=== PATIENT | female | born 1970 | race Caucasian/White ===

== ENCOUNTER → 2016-06-18 | Outpatient (CLI) | payer BC ==
[~2016-06-18] MED LIST: ACET-2321 PO; ASPI-917 PO; CALC60CR5 TOP; CLOB15OI3 TOP; DICL75TA5 PO; LISI-621 PO; LISI1TAB11 PO; MAGN250T33 PO; OXYC5TAB84 PO; POLY17PO6 PO
[2016-06-18 09:55] LABS: ANION GAP 10 MEQ/L (5-15); BUN/CREATININE RATIO 23 RATIO (6-26); CALCIUM 9.1 MG/DL (8.4-10.2); CHLORIDE 105 MEQ/L (98-107); CO2 - CARBON DIOXIDE 29 MEQ/L (22-30); CREATININE 0.7 MG/DL (0.7-1.2); GLOMERULAR FILTRATION RATE 91; GLUCOSE 94 MG/DL (65-110); POTASSIUM 4.2 MEQ/L (3.6-5); SODIUM 144 MEQ/L (134-144)
== END ==
LOC: LAB 09:28
PROVIDERS: ATTEND Orthopaedic Surgery
DX: E87.1 Hypo-osmolality and hyponatremia (principal)
CPT/HCPCS: 36415; 80048

== ENCOUNTER 2016-07-16 06:09 | Day surgery (SDC) | payer BC ==
--- NOTE | 2016-07-07 09:49 | NUR ---
PMH, allergies, reviewed and updated. Preop and DOS instructions given including handout of Postop Instructions for CTR and Surgical Services pamphlet. Patient does continue on ASA as a blood thinner from postop knee revision. Message to Dr Cummins's nurse who will check with him and notify patient with regard to the ASA.
[~2016-07-16] VITALS: Ht 157.5 cm; Wt 107.1 kg
[~2016-07-16 06:09] MED LIST changes: -OXYC5TAB84 PO; -POLY17PO6 PO
--- OUTSIDE RECORDS SUMMARY | 2016-07-16 06:14 | XMS REPORT | Continuity of Care Document ---
Author Author [facility] Organization [facility] Address Unknown Phone Unavailable Support Name Relationship Address Phone CHRISTI CUMMINS MD Caregiver [address] [place] [address] Unavailable CHRISTI CUMMINS MD Caregiver [address] [place] [address] Unavailable KI MALONEY MD Caregiver [address] [place] [address] Unavailable THOMPSON MARTINEZ Next Of Kin [address] [place] [address] Insurance Providers Guarantor George Martinez Address [address] [place] [address] Email [email or web address] Policy Number [id number] Subscriber's Name Thompson Martinez Relationship 01 Spouse Group Number [id number] Advance Directives Directive Response Recorded Date/Time Ordered Resuscitation Status Full Code 06/14/16 3:00pm Resuscitation Documents on File No 06/15/16 10:00am DPOA for Healthcare Only No 06/15/16 10:00am Living Will No 06/15/16 10:00am Problems Active Problems Medical Problem Onset Date Status Hyperlipemia Unknown Hypertension Unknown Obesity, morbid, BMI 40.0-49.9 Unknown Surgical Problem Onset Date Status History of total knee arthroplasty Unknown Chronic Past Problems Medical Problem Onset Date Asthma Unknown Degenerative arthritis of left knee Unknown Medications Current Home Medications Medication Dose Units Route Directions Days Qty Instructions Start Date Acetaminophen (Tylenol) 325 Mg Tablet 650 Mg Oral Four Times Daily 60 Tablet 06/16/16 Aspirin (Aspirin Ec) 325 Mg Tablet. 325 Mg Oral Twice A Day 84 Tablet 06/16/16 Calcipotriene 60 Gm Cream..g. 1 Applic Topically Twice A Day as needed for Psoriasis 02/05/16 Clobetasol Propionate 15 Gm Oint...g. 1 Applic Topically Twice A Day as needed for Psoriasis 02/05/16 Diclofenac Sodium 75 Mg Tablet. 1 Tab Oral Twice A Day 04/28/16 Lisinopril 20 Mg Tablet 20 Mg Oral Daily 2 Tablet 06/16/16 Lisinopril/Hydrochlorothiazide (Lisinopril-Hctz 20-12.5 Mg Tab) 1 Each Tablet 1 Tab Oral Daily 08/07/15 Magnesium Oxide (Magnesium) 250 Mg Tablet 250 Mg Oral Daily 04/28 Oxycodone Hcl 5 Mg Tablet 5-15 Mg Oral Every 3 Hours as needed for Breakthrough Pain 60 Tablet 06/16/16 Polyethylene Glycol 3350 (Miralax) 17 Gm Powd.pack 17 G Oral Daily as needed for Constipation 1 Bottle Take 17 Grams (1 capful), by mouth, once a day. 06/16/16 Past Home Medications Medication Directions Ordered Status Hydralazine/Reserpin/Hctz (Hctz/Reserpine/Hydral Tab) 1 Tab Tablet, 1 Tab Oral 07/06/10 Discontinued Social History Social History Problem Response Recorded Date/Time Onset Date Status Reason for Hospitalization RIGHT KNEE REVISION 06/16/2016 12:59pm Not Applicable Not Applicable Chewing Tobacco Status No 06/15/2016 10:00am Not Applicable Not Applicable Hx Substance Use No 06/15/2016 10:00am Not Applicable Not Applicable Hx Alcohol Use Y every other week 06/15/2016 10:00am Not Applicable Not Applicable Has the pt used tobacco in the last 12 months No 06/15/2016 10:00am Not Applicable Not Applicable Query Response Start Date Stop Date Smoking Status Former smoker Hospital Discharge Instructions Instructions: Care Instructions: Reason for Hospitalization: RIGHT KNEE REVISION I was in the hospital because (patient own words): right knee surgery Discharge Diet: Resume normal diet as tolerated Discharge Activity: Continue the exercises you were given in the hospital three times a day. Your therapist will provide you with a home therapy program prior to your hospital discharge. As you feel stronger, increase the number of repetitions you do in each session. Please check with us before you swim, use a whirlpool, drive or ride a bicycle. Follow Up Appointments: Follow up as scheduled Pending Lab / Results: No Pending Lab Patient Instructions: Driving may be resumed once you are no longer taking narcotic medications and feel you can safely operate the vehicle. You may wish to practice in an empty parking lot at first. Keep in mind that your reaction time will be delayed for up to 6 weeks after surgery. Contact your surgeon for antibiotics to take before having dental work. Wound/Incision Care: In most cases, a Mepilex dressing will be placed at the time of surgery. This dressing will not need to be covered while showering. Leave dressing in place until your follow-up appointment as long as it remains clean, dry and stuck down well around the edges. Call your Doctor if you encounter a problem with your dressing. Please avoid submerging your incision until it is completely healed, once the Mepilex dressing is removed. This includes bathtubs, swimming pools, and hot tubs. DO NOT USE ALCOHOL, PEROXIDE, OR OINTMENTS of any kind on your incision. Pain Scale Utilized to Educate Patient: 0-10 Pain Scale Pain Management/Treatment: Ice packs may be used, and will also help with the pain. You will be given a prescription for pain. Expected Signs/Symptoms: Some swelling around the incision, as well as in your feet and legs is normal. To help with this, elevate your feet on a footstool when sitting in a chair, and do the ankle pumps and circles whenever you are sitting still. Muscle action helps to move collected fluid out of the tissues and improve circulation. Ice packs may be used, and will also help with the pain. Report any persistent swelling, calf tenderness, increase in pain, or pain in the calf with warmth, or redness to your doctor. Notify Physician If: Report any complications to my office immmediately. This includes excessive bleeding, wound breakdown, redness around the wound, uncontrolled pain, or fever over 101 on 3 different measurements. Eat a balanced diet and get plenty of rest. During Business Hours:: If you have any questions or concerns, please call during regular office hours ([phone]). After Business Hours:: If you have any problems or need to reach a physician after hours or on the weekend please call the hospital's main number [phone] to have your physician paged. Condition at time of discharge: Good Plan of Care Discharge Date 06/16/16 1:15pm Disposition 01 DISCHARGED HOME, SELF-CARE Instructions/Education Provided [facility] Postop Instructions VINAYAK Cummins General Instructions Prescriptions See Medication Section Additional Instructions/Education FOLLOW UP WITH DR CUMMINS 07-07-16 @ 9:45AM Care Plan and Goals See Discharge Instructions Section Functional Status Query Response Date Recorded Mobility Status Ambulatory w/assist June 16, 2016 12:59pm Assistive Devices Front Wheeled Walker June 16, 2016 12:59pm Activity Limitations Pain June 16, 2016 12:59pm Feeding Ability Independent June 16, 2016 12:59pm Toileting Ability Independent June 16, 2016 12:59pm Grooming Ability Independent June 16, 2016 12:59pm Dressing Ability Independent June 16, 2016 12:59pm Driving Ability Dependent June 16, 2016 12:59pm Housework Ability Independent June 16, 2016 12:59pm Meal Preparation Ability Independent June 16, 2016 12:59pm Stair Climbing Ability Dependent June 16, 2016 12:59pm Ability to complete ADL's impeded by Impaired Mobility June 16, 2016 12:59pm Cognitive/Perceptual Impairments Impaired vision June 16, 2016 12:59pm Visual Assistive Devices Glasses June 15, 2016 1:05pm Preferred Method of Learning Reading Demonstration June 15, 2016 1:05pm Allergies, Adverse Reactions, Alerts Allergen Type Severity Reaction Status Last Updated Penicillin Allergy Unknown RASH Active 06/15/16 Erythromycin base Adverse Reaction Unknown NAUSEA Active 06/15/16 Azithromycin Allergy Unknown Active 06/15/16 Amoxicillin Adverse Reaction Unknown NAUSEA, DIARRHEA Active 06/15/16 Tramadol Allergy Unknown ITCHING Active 06/15/16 Immunizations Query Response on File Recorded Date/Time Hx Influenza Vaccination Y fall 201306/15/16 10:00am Hx Pneumococcal Vaccination No 06/15/16 10:00am Hx Influenza Vaccination Y fall 201306/15/16 10:00am Influenza Vaccine Hx Pt refused 06/16/16 12:18pm Vital Signs Acute Vital Signs Vital Response Date/Time Temperature (Fahrenheit) 96.7 deg F (96.8 - 99.1) 06/16/2016 10:34am Temperature (Calculated Celsius) 35.78568 degrees C (36.0 - 37.3) 06/16/2016 10:34am Temperature Source Oral 06/16/2016 10:34am Pulse Rate (adult) 58 bpm (60 - 100) 06/16/2016 10:37am Respiratory Rate 20 breaths/min (10 - 20) 06/16/2016 10:37am O2 Sat by Pulse Oximetry 99 % (90 - 100) 06/16/2016 10:34am Oxygen Delivery Method Room Air 06/16/2016 10:34am Oxygen Delivery Method Room Air 06/15/2016 1:35pm Blood Pressure 125/65 mm Hg 06/16/2016 10:34am Blood Pressure Source Automatic Cuff 06/16/2016 10:34am Height (Feet) 5 feet 06/16/2016 8:28am Height (Inches) 2.00 inches 06/16/2016 8:28am Weight (Kilograms) 106.800 kg 06/16/2016 12:17pm Body Mass Index (BMI) 42.0 06/15/2016 8:50am Results Laboratory Results Test Name Result Units Flags Reference Collection Date/Time Result Date/ Time Comments Neutrophils (%) (Auto) 70.6 % H 33-66 04/23/2016 9:53am 04/23/2016 10: 15am Lymphocytes (%) (Auto) 21.7 % L 23-45 04/23/2016 9:53am 04/23/2016 10: 15am Monocytes (%) (Auto) 4.6 % 0-9.0 04/23/2016 9:53am 04/23/2016 10:15am Eosinophils (%) (Auto) 2.3 % 0-4 04/23/2016 9:53am 04/23/2016 10:15am Basophils (%) (Auto) 0.6 % 0-2 04/23/2016 9:53am 04/23/2016 10:15am Immature Granulocyte % (Auto) 0.2 % 0.0-0.5 04/23/2016 9:53am 2016 10:15am Absolute Neutrophils (auto) 6.8 T/MM3 1.8-7.7 04/23/2016 9:53am 2016 10:15am Absolute Lymphocytes (auto) 2.1 T/MM3 1-4.8 04/23/2016 9:53am 2016 10:15am Absolute Monocytes (auto) 0.4 T/MM3 0-0.8 04/23/2016 9:53am 04/23/2016 10:15am Absolute Eosinophils (auto) 0.2 T/MM3 0-0.5 04/23/2016 9:53am 2016 10:15am Absolute Basophils (auto) 0.1 T/MM3 0-0.2 04/23/2016 9:53am 04/23/2016 10:15am Absolute Immature Granulocyte (auto 0.02 T/MM3 0.00-0.03 04/23/2016 9: 53am 04/23/2016 10:15am C-Reactive Protein 7.8 MG/L 0-9 04/23/2016 9:53am 04/23/2016 10:19am Erythrocyte Sedimentation Rate 8 mm/h 0-23 04/23/2016 9:53am 2016 3:08pm Sedimentation Rate performed at [facility], [address], [place] [address] Ballistician Berny Quinn DO White Blood Count 11.9 T/MM3 H 4.5-11.0 06/16/2016 5:27am 06/16/2016 5: 38am Red Blood Count 3.90 M/MM3 L 4.00-5.20 06/16/2016 5:27am 06/16/2016 5: 38am Hemoglobin 11.6 GM/DL L 12-16 06/16/2016 5:am 06/16/2016 5:38am Hematocrit 36.3 % 36-46 06/16/2016 5:06/16/2016 5:38am Mean Corpuscular Volume 93.1 UM3 80-100 06/16/2016 5:am 06/16/2016 5: 38am Mean Corpuscular Hemoglobin 29.7 UUG 26-34 06/16/2016 5:am 2016 5:38am Mean Corpuscular Hemoglobin Concent 32.0 GM/DL 31-37 06/16/2016 5:06/16/2016 5:38am RDW Standard Deviation 40.9 FL 36.9-50.2 06/16/2016 5:06/16/2016 5 :38am Platelet Count 273 T/MM3 130-400 06/16/2016 5:am 06/16/2016 5:38am Mean Platelet Volume 10.0 UM3 9.4-12.4 06/16/2016 5:am 06/16/2016 5: 38am Icterus Index < 2 0-7 06/16/2016 5:am 06/16/2016 5:50am Chemistry Specimen Hemolysis < 15 0-25 06/16/2016 5:am 06/16/2016 5 :50am 0-25: Specimen Exhibited No Hemolysis. Turbidity < 20 0-20 06/16/2016 5:06/16/2016 5:50am Sodium Level 133 MEQ/L D L 134-144 06/16/2016 5:06/16/2016 5:50am Potassium Level 4.2 MEQ/L 3.6-5 06/16/2016 5:06/16/2016 5:50am Chloride Level 100 MEQ/L 98-107 06/16/2016 5:06/16/2016 5:50am Carbon Dioxide Level 27 MEQ/L 22-30 06/16/2016 5:06/16/2016 5: 50am Anion Gap 6 MEQ/L 5-06/16/2016 5:06/16/2016 5:50am Blood Urea Nitrogen 12.0 MG/DL 7-06/16/2016 5:06/16/2016 5: 50am Creatinine 0.6 MG/DL L 0.7-1.2 06/16/2016 5:06/16/2016 5:50am BUN/Creatinine Ratio 20 RATIO 6-26 06/16/2016 5:06/16/2016 5:50am Glomerular Filtration Rate Calc 109 06/16/2016 5:06/16/2016 5: 50am Glucose Level 134 MG/DL H 65-110 06/16/2016 5:06/16/2016 5:50am Calculated Osmolality 258 MOSM/KG L 261-280 06/16/2016 5:2016 5:50am Calcium Level 8.7 MG/DL 8.4-10.2 06/16/2016 5:06/16/2016 5:50am Glucometer 99 mg/dL 65-110 06/15/2016 12:46pm 06/15/2016 1:20pm Name: GEORGE MARTINEZ Unit #: [id number] : 1970 Sex: F Admit Date: 06/15/16 Loc / Svc: SRG Discharge Date: DIAGNOSTIC IMAGING REPORT Report #: [id number] [facility] FR[facility] Jackson Indication: ITS.REASON: POSTOP PROCEDURE: KNEE RIGHT 2 VIEW: Encounter: Initial Comparison: July 07, 2010 Findings: Postoperative changes of right total knee replacement are seen. There is expected postoperative subcutaneous gas. No evidence of hardware failure or acute fracture. No retained radiopaque surgical instruments or sponges. Overlying material causing artifact. Impression: Right total knee prosthesis without evidence of immediate complication. . Procedures Procedure Status Date Provider(s) Routine venipuncture Completed 04/23/16 Bone imaging 3 phase Completed 04/23/16 Complete cbc w/auto diff wbc Completed 04/23/16 Rbc sed rate automated Completed 04/23/16 C-reactive protein Completed 04/23/16 [id number]"TECHNETIUM TC-99M MEDRONATE, DIAGNOSTIC, PER STUDY DO Completed Revision of right total knee arthroplasty Completed 06/15/16 CHRISTI CUMMINS MD Encounters Encounter Location Arrival/Admit Date Discharge/Depart Date Attending Provider Discharged Inpatient [facility] 06/15/16 8:36am 06/16/16 1:15pm CHRISTI CUMMINS MD Registered Clinic [facility] 04/23/16 9:31am CHRISTI CUMMINS MD
[2016-07-16] MEDS ORDERED: LIDOCAINE 1% (10mg/ml) 30ml SDV ONE (06:26)
[2016-07-16] MEDS ORDERED: BUPIVACAINE 0.25% (2.5mg/ml) INJ 30ml SDV ONE (06:26)
[2016-07-16 06:45] VITALS: BP 159/98; PULSE 90; RESP 15; TEMP 97.8; O2SAT 95
[2016-07-16 06:47] VITALS: Ht 157.5 cm; Wt 107.1 kg
[2016-07-16 06:55] LABS: ANION GAP 13 MEQ/L (5-15); BUN/CREATININE RATIO 25 RATIO (6-26); CALCIUM 9.3 MG/DL (8.4-10.2); CHLORIDE 100 MEQ/L (98-107); CO2 - CARBON DIOXIDE 26 MEQ/L (22-30); CREATININE 0.6 MG/DL (0.7-1.2); GLOMERULAR FILTRATION RATE 109; GLUCOSE 96 MG/DL (65-110); POTASSIUM 4.2 MEQ/L (3.6-5); SODIUM 139 MEQ/L (134-144)
[2016-07-16] MEDS ORDERED: LR 1,000 ML IV SCH (07:00)
[2016-07-16] MEDS ORDERED: LIDOCAINE 1% (10mg/ml) 2ml SDV INJ ONE (07:00)
--- NOTE | 2016-07-16 07:03 | ANESPREOP ---
Anesthesia Record Date and Time DATE: 07/16/16 TIME: 07:02 Pre-Op Diagnosis Right Carpal tunnel Syndrome Proposed Surgical Procedure RT CTR NPO since: Midnight Allergies: Coded Allergies: Penicillins (Verified Allergy, Unknown, RASH, 06/15/16) azithromycin (Verified Allergy, Unknown, 06/15/16) tramadol (Verified Allergy, Unknown, ITCHING, 06/15/16) amoxicillin (Verified Adverse Reaction, Unknown, NAUSEA, DIARRHEA, 06/15/16 ) erythromycin base (Verified Adverse Reaction, Unknown, NAUSEA, 06/15/16) Ht/Wt/BMI Height: 5 ' 2.00 " Weight: 107.100 kg BMI: 43.2 kg/m2 Vital Signs Date Time Temp Pulse Resp B/P Pulse Ox O2 Delivery O2 Flow Rate FiO2 07/16/16 06:45 97.8 90 15 159/98 95 Room Air Medications Inpatient Medications Current Medications Medications (Trade) Dose Ordered Sig/Letty Start Time Stop Time Status Last Admin Dose Admin Lactated Ringer's (Lactated Ringers) 1,000 ml @ 50 mls/hr Q20H 07/16/16 07:00 07/16/16 06:55 50 MLS/HR Acetaminophen (Tylenol) 325 Mg Tablet, 2 TAB PO QID PRN for PAIN, (Reported) Last Taken: on 07/15/16 Aspirin *EC* (Aspirin EC) 325 Mg Tablet.dr, 1 TAB PO BID, (Reported) Last Taken: on 07/13/16 Calcipotriene (Calcipotriene) 60 Gm Cream..g., 1 APPLIC TOP BID PRN for PSORIASIS, (Reported) Clobetasol Propionate (Clobetasol Propionate) 15 Gm Oint...g., 1 APPLIC TOP BID PRN for PSORIASIS, (Reported) Diclofenac Sodium (Diclofenac Sodium) 75 Mg Tablet.dr, 1 TAB PO BID, (Reported) Last Taken: on 07/09/16 Lisinopril (Lisinopril) 20 Mg Tablet, 20 MG PO DAILY, (Reported) Lisinopril/Hydrochlorothiazide (Lisinopril-Hctz 20-12.5 mg Tab) 1 Each Tablet, 1 TAB PO DAILY, (Reported) Last Taken: on 07/15/16 Magnesium Oxide (Magnesium) 250 Mg Tablet, 250 MG PO DAILY, (Reported) Last Taken: on 07/15/16 Currently on Beta Dami: No Medical/Surgical History Anesthesia PMH: Reports: *Diabetes, *Hypertension, Anesthesia Reactions (N/V STATES PATCH AND IV MEDS TOGETHER HELP, NO AIRWAY ISSUES KNOWN), Arthritis ( ANKLE), Asthma (BETTER SINCE QUITTING SMOKING; ALLERGIC RHINITIS), Hiatal Hernia , Obesity (morbidly), Denies: Blood Transfusion Reac, Cancer, Clotting Problems , Glaucoma, Malignant Hyperthermia, Reflux, Renal Disease, Sleep Apnea Smoking Status: Former smoker (quit 4 years ago, with 27 year hx) Has pt. smoked today?: No Use Chewing Tobacco?: No Second Hand Exposure: No Substance Use Type: does not use Alcohol Intake: daily Last Drink: hours (ago) (2) HX of Last Menstrual Period: HYST Past Surgical History Orthopedic Surgeries: Yes - RIGHT KNEE SCOPE; RT TKA; LT TKA; RT KNEE SPACER EXCHANGE Abdominal Surgeries: Yes - APPY, UMBILICAL HERNIA REPAIR, LAP APPLE Genitourinary Surgeries: No Cardiac Surgeries: No Endocrine Surgeries: No Reproductive Surgeries: Yes - KAMRAN TUBAL LIGATION ;ABLATION; VAG HYST/LSO Neurological Surgeries: No Ear Surgeries: No Nose Surgeries: No Throat Surgeries: No Other Surgeries: No Anesthesia Adverse Reactions: FOUND nausea and vomiting Pertinent Findings Laboratory Tests 07/16/16 06:33 EKG Rhythm: Sinus Rhythm Physical Exam Respiratory: Lungs clear Cardiovascular: FOUND Regular rate, rhythm Airway Assessment Mallampati Score: II TMD: 3 Fingerbreadths Overall Assessment: No Airway Concerns ASA: 3 Plan Anesthesia Plan: TIVA Discussion Discussed risks/options/alternatives of anesthesia and questions answered. Patient consents. Nursing pain assessment noted. Attestation Statement Prior to the delivery of any anesthetic medication, I examined the patient, developed the plan, obtained the patient's consent and discussed the risk and benefits of the procedure with the patient/guardian. KULWINDER TOVAR CRNA Jul 16, 2016 07:03
[2016-07-16] MEDS ORDERED: PROPOFOL 500mg 50 ML IV ONE (07:40)
[2016-07-16] MEDS ORDERED: FENTANYL 100mcg/2ml INJECTION ONE (07:41)
[2016-07-16] MEDS ORDERED: CLINDAMYCIN 600mg IVPB 50 ML IV ONE (08:00)
[2016-07-16 08:16] VITALS: BP 152/87; PULSE 98; RESP 16; TEMP 98.6; O2SAT 97
[2016-07-16 08:20] VITALS: BP 140/77; PULSE 79; RESP 20; O2SAT 97
[2016-07-16] MEDS ORDERED: HYDR-4246 PO (08:28)
[2016-07-16 08:30] VITALS: BP 148/95; PULSE 86; RESP 22; O2SAT 97
[2016-07-16 08:40] VITALS: BP 145/100; PULSE 80; RESP 21; O2SAT 98
[2016-07-16 08:50] VITALS: BP 149/102; PULSE 78; RESP 16; O2SAT 97
--- NOTE | 2016-07-16 08:50 | NUR ---
STATUS KULWINDER ALANIZ CRNA NOTIFIED OF PATIENT ELEVATED BLOOD PRESSURE. PATIENT TO TAKE HER OWN SCHEDULED MEDS AT HOME. NO FURTHER ORDERS RECEIVED AT THIS TIME.
--- NOTE | 2016-07-16 09:39 | ANESPO ---
Post-Op Note Date 07/16/16 Time: 09:38 Status Pt Participated in Evaluation: Pt participated in person Vital Signs Date Time Temp Pulse Resp B/P Pulse Ox O2 Delivery O2 Flow Rate FiO2 07/16/16 08:50 78 16 149/102 97 Room Air 07/16/16 08:16 98.6 Respiratory Function: Airway patent Cardiovascular Function: Regular pulse Telemetry Pattern: SR Mental Status: Alert/oriented Pain Level Intensity: 0 Hydration: Taking po fluids Complications during Recovery None apparent Follow-Up Instructions Instructions Per Surgeon KULWINDER TOVAR CRNA Jul 16, 2016 09:39
--- NOTE | 2016-07-29 11:06 | PDOPERATE ---
Operative Note Date of Opeation 07/16/16 Preoperative Diagnosis Right carpal tunnel syndrome. Postoperative Diagnosis Right carpal tunnel syndrome. Operation Right carpal tunnel release. Surgeon Olivia Cummins MD Complications None. Anesthesia TIVA with local. Tourniquet Time Please see Anesthesia Record. Estimated Blood Loss Minimal. Description of Procedure The patient and the operative extremity were identified and marked in the preoperative holding area. The patient was brought back to the operating suite and placed supine on the operating table. The patient was placed under general anesthesia. The right upper extremity was prepped and draped in my normal sterile fashion. A timeout was preformed. The arm was exsanguinated, and the tourniquet was inflated up to 250 mmHg. The incision site was injected with 0.25% Marcaine and 1% Lidocaine. A 2.5 cm incision was made just ulnar to the thenar crease.Sharp dissection was carried down through the skin and subcutaneous fat, down to the palmar fascia and down to the transverse carpal ligament which was then excised under direct visualization, first with a scalpel and then completed both proximally and distally with scissors under direct visualization. The wound was then irrigated , and the incision was closed with a 3-0 nylon in simple interrupted fashion. A sterile soft dressing was placed. The tourniquet was let down. The patient was allowed to awaken from general anesthesia and was taken to the recovery room under the care of Anesthesia. The patient tolerated the procedure well. There were no complications. CHRISTI CUMMINS MD July 29, 2016 11:06
== END 2016-07-16 09:02 | disposition home or self-care (01) ==
LOC: SCU 06:09
PROVIDERS: ATTEND Orthopaedic Surgery
DX: G56.01 Carpal tunnel syndrome, right upper limb (principal); I10 Essential (primary) hypertension; E11.9 Type 2 diabetes mellitus without complications; Z96.653 Presence of artificial knee joint, bilateral; Z87.891 Personal history of nicotine dependence
CPT/HCPCS: 36415; 64721; 80048; A6222; J2704; J3010; J7120; S0020

== ENCOUNTER 2017-05-19 07:30 | Inpatient (IN) ==
[~2017-05-19 07:30] MED LIST changes: -ACET-2321 PO; +ACETAMINOPHEN 500 MG TABLET PO ONE; -ASPI-917 PO; -CALC60CR5 TOP; -CLOB15OI3 TOP; +DEXAMETHASONE 4 MG/ML INJECTION IVP ONE; -DICL75TA5 PO; +FAMOTIDINE PB 20 MG/50 ML BAG IV ONE; +LIDOCAINE 1% (10mg/ml) 2mL INJ PF SDV ID ONE; -LISI-621 PO; -LISI1TAB11 PO; -MAGN250T33 PO; +MELOXICAM 15 MG TABLET PO ONE; +METOCLOPRAMIDE 10mg/2ml INJECTION IVP ONE; +ONDANSETRON 4 MG/2 ML INJECTION IVP ONE; +TRANEXAMIC ACID 1,000 MG in NS 100 ML IV ONE
[2017-05-19] MEDS ORDERED: EPINEPHrine PF 0.25 MG, BUPIVACAINE 0.25% PF 30 ML, KETOROLAC INJ 60 MG in NS 30 ML OPSITE ONE (08:00)
[2017-05-19 08:08] VITALS: BMI 45.2
[2017-05-19] MEDS: NOZIN NASAL SWAB NAS SCH ×5 (08:41→21:13)
[2017-05-19] MEDS ORDERED: SALINE FLUSH 10ml SYRINGE IV PRN (08:52)
[2017-05-19] MEDS ORDERED: KETAMINE 500 MG/10 ML INJECTION ONE (09:59)
[2017-05-19] MEDS ORDERED: VANCOMYCIN 1,000 MG INJECTION ONE (10:28)
--- NOTE | 2017-05-19 10:30 | Anesthesia Preoperative Report ---
Anesthesia Preoperative Record - Date and Time Date: 05/19/17 Preoperative Diagnosis: Rt TKA Rev T84.84XD Proposed Procedure: revision TKA NPO Since Date: 05/19/17 NPO Since Time: 10:28 Allergies/Adverse Reactions: Allergies Allergy/AdvReac Type Severity Reaction Status Date / Time azithromycin Allergy Severe nausea/vomi Verified 05/19/17 08:18 ting/rash Penicillins Allergy Severe nausea/vomi Verified 05/19/17 08:18 ting/rash tramadol Allergy Severe ITCHING Verified 05/19/17 08:18 amoxicillin AdvReac Severe NAUSEA, Verified 05/19/17 08:18 DIARRHEA erythromycin base AdvReac Severe NAUSEA/rash Verified 05/19/17 08:18 - Vital Signs Vital Signs: Temperature 98.4 F 05/19/17 08:08 Pulse Rate 85 05/19/17 08:25 Respiratory Rate 15 05/19/17 08:08 Blood Pressure 157/95 H 05/19/17 08:08 Pulse Oximetry 97 05/19/17 08:08 Height and Weight: Height 1.55 m Weight 108.6 kg Body Mass Index 45.2 - Medications Inpatient Medications: Current Medications Epinephrine HCl 0.25 mg/Bupivacaine HCl 30 ml/Ketorolac Tromethamine 60 mg/ Sodium Chloride 62.25 mls @ 1 mls/hr OPSITE INTRAOP ONE PRN Reason: Protocol Stop: 05/21/17 22:14 Lactated Ringer's (Lactated Ringers) 1,000 mls @ 50 mls/hr IV .Q20H RENAE Last Admin: 05/19/17 08:35 Dose: 50 mls/hr Sodium Chloride (Iv Flush) 10 - 80 ml IV PRN PRN PRN Reason: Flushing Home Medications: Home Medications Medication Instructions Recorded Confirmed Type Calcipotriene 1 applicatio TOP BID PRN #0 02/05/16 05/19/17 History Clobetasol Propionate 1 applicatio TOP BID PRN #0 02/05/16 05/19/17 History Acetaminophen [Tylenol] 2 tab PO QID PRN #0 tab 07/07/16 05/19/17 History Hyzaar (losartan 100 1 tab PO DAILY 03/30/17 05/19/17 History mg-hydrochlorothiazide 25 mg) tablet Lipitor (atorvastatin) 10 mg tablet 10 mg PO DAILY 03/30/17 05/19/17 History ergocalciferol (vitamin D2) 50,000 50,000 unit PO DAILY #1 cap 05/17/17 Rx unit capsule Is Patient on Beta Dami?: No - Medical History Respiratory: DENIES: Sleep Apnea Cardiovascular: Reports: Hypertension, High Cholesterol Neuro/Musculoskeletal: Reports: HX.MS.OSAR - Surgical History GI Surgery/Treatments: Reports: Appendectomy, Cholecystectomy, Hernia Repair ( umbilical) Musculoskeletal Surgery/Tx: Reports: Carpal Tunnel Release (Rt), Total Knee Replacement (Rt TKR; spacer revision; Lt TKR), Other (Rt ankle) Reproductive Surgery/Treatment: Reports: Hysterectomy, Tubal Ligation - Social History Smoking Status: Former smoker Hx Chewing Tobacco Use: No Second Hand Exposure: No Substance Use Type: does not use Alcohol Intake Frequency: does not drink - Pertinent Findings Laboratory: CBC and BMP 05/19/17 08:28 BMP 05/19/17 08:28 Sodium 145 H Potassium 3.7 Chloride 104 Carbon Dioxide 28 BUN 11.0 Creatinine 0.5 L Glucose 93 Calcium 9.2 EKG: Sinus Rhythm - Physical Exam Respiratory Exam: Present: lungs clear Cardiovascular Exam: Present: regular rate and rhythm, no murmur - Airway Assessment Mallampati Score: II TMD: 3 Fingerbreadths Neck Extension: good Teeth: chipped teeth/crowns Overall Assessment: no airway concerns - ASA ASA Score: 2 - Plan Regional/Trunk Block: Spinal Peripheral Nerve Block: Saphenous-Left - Discussion Discussion: Discussed risks/options/alternatives of anesthesia and questions answered. Patient consents. Nursing pain assessment noted. Present for Discussion: family member Attestation Statement: Prior to the delivery of any anesthetic medication, I examined the patient, developed the plan, obtained the patient's consent and discussed the risk and benefits of the procedure with the patient/guardian. - Additional Information Seen by Anesthesia: Yes
[2017-05-19] MEDS ORDERED: CEFAZOLIN 1 G INJECTION IVP ONE (11:00)
[2017-05-19] MEDS ORDERED: PROPOFOL 500 MG/50 ML VIAL ONE ×2 (11:03→11:41)
[2017-05-19] MEDS ORDERED: BUPIVACAINE 0.75%/DEXTROSE 8.5% SPINAL 2 ML AMPULE IJ ONE (11:04)
[2017-05-19] MEDS ORDERED: LIDOCAINE 2% (100mg/5mL) PF 5ml vl ONE ×2 (11:04)
[2017-05-19] MEDS ORDERED: MIDAZOLAM 2mg/2ml INJECTION ONE (11:12)
[2017-05-19] MEDS ORDERED: VANCOMYCIN 1,000 MG INJECTION IAR ONE (11:36)
[2017-05-19] MEDS ORDERED: PROPOFOL 40 ML ONE (11:42)
[2017-05-19] MEDS ORDERED: ROPIVACAINE 0.5% (5mg/ml) 30ml INJ ONE (12:41)
[2017-05-19] MEDS ORDERED: NOZIN NASAL SWAB NAS ONE (13:12)
[2017-05-19] MEDS ORDERED: ONDANSETRON 4 MG/2 ML INJECTION IVP PRN (13:12)
[2017-05-19] MEDS ORDERED: DiphenhydrAMINE 25 MG CAPSULE PO PRN (13:12)
[2017-05-19] MEDS ORDERED: LORazepam 1 MG TABLET PO PRN (13:12)
[2017-05-19] MEDS ORDERED: DiphenhydrAMINE 50 MG/ML INJECTION IVP PRN (13:12)
--- NOTE | 2017-05-19 13:13 | Anesthesia Postoperative Note ---
- Date and Time Date: 05/19/17 Time: 13:13 - Status Patient Participated in Evaluation: Patient Participated in Person Vital Signs: Temperature 97.1 F 05/19/17 12:35 Pulse Rate 83 05/19/17 13:05 Respiratory Rate 20 05/19/17 13:05 Blood Pressure 118/74 05/19/17 13:05 Pulse Oximetry 94 05/19/17 13:05 Respiratory Function: Airway Patent Cardiovascular Function: Regular Pulse EKG: Sinus Rhythm EKG Ectopy: Bundle Branch Block Mental Status: Alert and Oriented Pain Intensity: 0 Hydration: Taking PO Fluids Complications During Recover: None Apparent - Follow-Up Instructions Instructions: Per Surgeon
[2017-05-19] MEDS ORDERED: FALL RISK - PHARMACY CONSULT XX ONE (13:27)
[2017-05-19] MEDS: ACETAMINOPHEN 325 MG TABLET PO SCH ×3 (13:36→20:17)
[2017-05-19] MEDS: NS 1,000 ML IV SCH (13:36)
--- NOTE | 2017-05-19 14:45 | XRay Report ---
Indication: postoperative image PROCEDURE: XR knee RT 2V: Encounter: Initial Comparison: March 30, 2017 Findings: Postoperative changes of right total knee replacement are seen. There is expected postoperative subcutaneous gas. No evidence of hardware failure or acute fracture. No retained radiopaque surgical instruments or sponges. Overlying material causing artifact. Impression: Right total knee prosthesis without evidence of immediate complication. .
--- NOTE | 2017-05-19 15:49 | Operative Note ---
* DATE OF OPERATION 05/19/2017 PREOPERATIVE DIAGNOSIS Right total knee arthroplasty instability. POSTOPERATIVE DIAGNOSIS Loose plastic liner right total knee arthroplasty. PROCEDURE Spacer exchange right total knee arthroplasty. SURGEON Ricky Cummins MD [employer] Ney Bright PA-C COMPLICATIONS None ANESTHESIA Spinal FLUIDS AND EBL Please see anesthetic records. DESCRIPTION OF PROCEDURE Ms. Martinez and her right knee were identified and marked in the preoperative holding area. She was brought back to the operating suite and spinal anesthetic was administered. She was placed in the supine position and her right lower extremity was prepped and draped in my normal sterile fashion. Time-out was performed. I took the knee through a range of motion. She had excellent motion and it did feel stable. There was no gross instability noted with exam under anesthesia. No signs of patellar subluxation. I utilized the previous anterior midline incision. Sharp dissection was carried through the skin and subcutaneous tissue down to the capsulotomy. There was a hole in her previous capsular repair superior to the patella approximately 3 cm in length. It was difficult to tell if this was causing some of her symptoms. Remaining capsulotomy that had healed was then opened sharply. Her previous spacer did appear to be in the correct position. Again, I took the knee through a range of motion several times. I did not appreciate any instability symptoms. I placed her knee in 90 degrees of flexion and placed a small arthrotome under the insert to remove it and it easily popped out of place without any force whatsoever, leading me to believe that the spacer was likely loose as we had suspected from her history as well as from her previous x-rays. The spacer was then removed and examined and we did not notice any obvious damage to it other than normal wear. There were some depressions on either side where it inserts into the tibial spacer but it was difficult to tell whether this was abnormal or not for this spacer. The wound was then thoroughly irrigated with Betadine solution and normal saline. I then opened a new 17 mm insert and we reinserted it. It did snap into place nicely. I did slightly pry on it with an osteotome to ensure it did not dislodge as easily as the previous spacer had, which it did not. The wound was thoroughly irrigated one more time and then the capsulotomy repaired with #1 Vicryl. Subcutaneous tissue was repaired with 2-0 Vicryl and the skin was closed with running 4-0 Monocryl. Sterile dressing was placed. Drapes were removed and she was taken back to the recovery room under the care of Anesthesia. She tolerated the procedure well and there were no complications. MARIBELL
[2017-05-19] MEDS: Oxycodone *IR* 5 MG TABLET PO PRN ×3 (15:57→23:14)
[2017-05-19] MEDS ORDERED: LR 1,000 ML IV SCH (16:45)
[2017-05-19] MEDS: CEFAZOLIN 2 G in NS 50 ML IV SCH (18:38)
[2017-05-19] MEDS: ASPIRIN *EC* 81 MG TABLET PO SCH (20:16)
[2017-05-19] MEDS: NAPROXEN 220 MG TABLET PO SCH (20:16)
[2017-05-19] MEDS: DOCUSATE SODIUM 100 MG CAPSULE PO SCH (20:17)
[2017-05-19] MEDS ORDERED: ENOXAPARIN 40 MG/0.4 ML INJECTION SQ SCH (21:00)
[2017-05-19] MEDS ORDERED: SENNOSIDES 8.6 MG TABLET PO SCH (21:00)
[2017-05-20] MEDS: NS 1,000 ML IV SCH (01:14)
[2017-05-20] MEDS: CEFAZOLIN 2 G in NS 50 ML IV SCH (03:12)
[2017-05-20 04:04] VITALS: RESP 16
[2017-05-20] MEDS: NOZIN NASAL SWAB NAS SCH (06:12)
[2017-05-20 07:40] VITALS: BP 143/93; PULSE 81; TEMP 95.8; O2SAT 98
[2017-05-20] MEDS: Oxycodone *IR* 5 MG TABLET PO PRN (07:41)
--- NOTE | 2017-05-20 08:00 | Orthopedic Progress Note ---
Date: Date: 05/20/17 Time: 756 Subjective/Severity of Illness: Patient has done well overnight. Has been up ambulating. Reports pain has been well controlled. Reports nausea at 0200, resolved with Zofran. Dressing did have significant drainage overnight on proximal surgical site. Reinforced with gauze. Denies CP, SOA, or any other concerns. Orthopedic Objective PO Vital signs: Temperature 95.8 F L 05/20/17 07:39 Pulse Rate 81 05/20/17 07:39 Respiratory Rate 16 05/20/17 07:39 Blood Pressure 143/93 H 05/20/17 07:39 Pulse Oximetry 98 05/20/17 07:39 Height and Weight: Height 5 ft 1 in Weight 108.6 kg Body Mass Index 45.2 - Constitutional General Appearance: Present: alert, orientated x3, no acute distress, well developed, well nourished - Respiratory Exam Present: non-labored - Cardiovascular Exam Present: pedal pulses intact - Extremities Exam Extremities: Present: no edema, pulses intact. Absent: calf tenderness, Tomi' s sign - Surgical Site Incision: bloody drainage present (drainage from small area proximal surgical incision site) - Neurological Exam Present: no deficits - Labs Result Diagrams: 05/20/17 04:03 05/20/17 04:03 Abnormal lab results 05/19/17 05/20/17 Range/Units 08:28 04:03 Sodium 145 H (134-144) MEQ/L Creatinine 0.5 L 0.5 L (0.7-1.2) MG/DL Glucose 138 H (65-110) MG/DL H & H 05/20/17 Range/Units 04:03 Hgb 12.2 (12-16) GM/DL Hct 38.5 (36-46) % Orthopedic Assessment and Plan (1) Painful total knee replacement, right Status: Acute - Anticoagulation Therapy Anticoagulation: ASA 81 mg PO BID x6 weeks Hospital Course Summary Disclaimer: The visit summary below is not to be considered part of the above Progress Note. Hospital Course: Current anti-coagulation protocol for VTE prophylaxis, and SCDs for added DVT prophylaxis. PT/OT services to improve independent function. Patient is stable, in good condition. Will plan to discharge home today.
[2017-05-20] MEDS ORDERED: POLYETHYL GLYCOL 3350 17gm PACKET PO SCH (09:00)
[2017-05-20] MEDS ORDERED: ATORVASTATIN 10 MG TABLET PO SCH (09:00)
[2017-05-20] MEDS: DOCUSATE SODIUM 100 MG CAPSULE PO SCH (09:01)
[2017-05-20] MEDS: ACETAMINOPHEN 325 MG TABLET PO SCH (09:01)
[2017-05-20] MEDS: ASPIRIN *EC* 81 MG TABLET PO SCH (09:01)
[2017-05-20] MEDS: NAPROXEN 220 MG TABLET PO SCH (09:02)
--- NOTE | 2017-05-20 09:06 | Discharge Summary ---
Orthopedic Discharge Info Date of admission: 05/19/17 07:38 Anticipated date of discharge: 05/20/17 Primary care physician: Garrick Kay MD Attending Physician: Ricky Cummins MD Consults: 05/19/17 08:11 Consult to Anesthesiology [CONS] Routine Reason For Exam: Preoperative Assessment 05/19/17 13:12 Case Management Consult [CONS] Routine Reason For Exam: Discharge Planning DME-Walker [CONS] Routine Height: 5 ft 1 in Weight: 108.6 kg Total Joint Outpatient Therapy [CONS] Routine Comment: Remove dressing in 2 weeks - Discharge Diagnosis (1) Painful total knee replacement, right Status: Acute - Procedures Procedures: Procedures Insertion of Spacer into Right Knee Joint, Open Approach (06/15/16) Removal of Spacer from Right Knee Joint, Open Approach (06/15/16) Total knee replacement (07/07/10) - Laboratory Result Diagrams: 05/20/17 04:03 05/20/17 04:03 Laboratory: Abnormal lab results 05/20/17 Range/Units 04:03 Creatinine 0.5 L (0.7-1.2) MG/DL Glucose 138 H (65-110) MG/DL H & H 05/20/17 Range/Units 04:03 Hgb 12.2 (12-16) GM/DL Hct 38.5 (36-46) % Orthopedic Discharge HPI - HPI Comments This patient was admitted for elective surgical tx of painful right TKA, patient underwent revision of TKA with spacer replacement. Further details of this is found in the admission H&P. Orthopedic Hospital Course Hospital course: 05/20/17 09:09 After appropriate preoperative clearance and signing of operative consent, the patient was given IV antibiotics, according to orthopedic protocol. The patient was taken to the operating room and underwent elective joint revision with polyspacer replacement. Following surgery, antibiotics were discontinued less than 24 hours according to joint protocol. Appropriate anticoagulants were initiated and SCDs added for DVT prevention. The dressing was clean, dry, and intact. Pain control was obtained via multimodal approach. Bowel motivation addressed with scheduled and PRN medications. Early mobilization was initiated through PT services. Discharge arrangements made by a collaborative effort between the patient and Case Management. Due to bloody drainage of one location of proximal location, anita were placed. New dressing was applied. Follow-up is scheduled in 2-3 weeks. Discharge instructions given by orthopedic providers and nursing staff at discharge. Discharge condition was good. 05/20/17 09:09 Care extended to > 2 midnight stays?: No Discharge Plan - Med Rec/Dispo Referrals/Follow Up: Ricky Cummins MD [Physician] - 06/13/17 10:30 am [place] [facility] [place] Additional Instructions: [facility] ON 05/23/2017 AT 4:15PM FOR PHYSICAL THERAPY EVAL. PLEASE COMPLETE THE PAPERWORK IN [place] [facility] PRIOR TO THE APPOINTMENT. PHONE [phone] Prescriptions: New Aspirin *EC* [Ecotrin] 81 mg PO BID tablet Docusate Sodium [Colace] 100 mg PO BID capsule Naproxen [Aleve] 440 mg PO BID tablet PEG 3350 17gm PACKET [Miralax] 17 gm PO DAILY packet Acetaminophen [Tylenol] 650 mg PO QID tablet Oxycodone *IR* [Roxicodone *Ir*] 5 - 15 mg PO Q3H PRN #60 tab PRN Reason: Breakthrough Pain Continue Acetaminophen [Tylenol] 2 tab PO QID PRN #0 tab PRN Reason: PAIN Calcipotriene 1 applicatio TOP BID PRN #0 PRN Reason: PSORIASIS Clobetasol Propionate 1 applicatio TOP BID PRN #0 PRN Reason: PSORIASIS Hyzaar (losartan 100 mg-hydrochlorothiazide 25 mg) tablet 1 tab PO DAILY Lipitor (atorvastatin) 10 mg tablet 10 mg PO DAILY ergocalciferol (vitamin D2) 50,000 unit capsule 50,000 unit PO DAILY #1 cap - Disposition 01 Discharged Home, Self-Care - Dismissal Complete Discharge Instructions are:: Complete, Incomplete
[2017-05-20] MEDS ORDERED: SENNOSIDES 8.6 MG TABLET PO PRN (12:31)
[2017-05-20] MEDS ORDERED: NAPROXEN 220 MG TABLET PO SCH (17:30)
[2017-05-21] MEDS ORDERED: BISACODYL 10 MG SUPPOSITORY RECTALLY SCH (20:00)
== END 2017-05-20 11:45 | disposition home or self-care (01) | DRG 561 ==
LOC: NMC.PERIOP 07:38 → SRG 13:10
PROVIDERS: ADMIT Orthopaedic Surgery; ATTEND Orthopaedic Surgery